=== PATIENT | male | born 2000 | race Caucasian/White ===

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

== ENCOUNTER 2020-12-09 21:14 | Emergency (ER) | payer OTHER ==
[2020-12-09 21:14] VITALS: BP 174/96
[~2020-12-09 21:14] MED LIST changes: -CITA20TA4; +CITA20TA6
[2020-12-09] MEDS ORDERED: METO1TAB7 (21:21)
--- NOTE | 2020-12-09 22:37 | REPVR ---
PROCEDURE INFORMATION: Exam: XR Left Toe(s) Exam date and time: 12/09/2020 9:46 PM Age: 20 years old Clinical indication: Pain; Toes; Left; Additional info: Dropped piece of lumbar on toe TECHNIQUE: Imaging protocol: XR Left toes. Views: Minimum 2 views. COMPARISON: No relevant prior studies available. FINDINGS: Bones/joints: There is no fracture or dislocation of the left toes. The joint spaces and alignment of the left toes are maintained. Soft tissues: Unremarkable. IMPRESSION: No fracture or dislocation of the left toes. Electronically signed by: Howard Bliss On 12/09/2020 22:36:48 PM
== END 2020-12-10 02:56 | disposition left against medical advice (07) ==
LOC: M ED 21:14
DX: Z53.21 Procedure and treatment not carried out due to patient leaving prior to being seen by health care provider (principal)

== ENCOUNTER 2022-03-11 20:51 | Emergency (ER) | payer OTHER ==
[~2022-03-11] VITALS: Ht 182.9 cm; Wt 129.9 kg
[~2022-03-11 20:51] MED LIST changes: +METO1TAB7
[2022-03-11] MEDS ORDERED: LISI20TA33 (21:00)
[2022-03-12 00:13] LABS: BASO % 0.5 % (0.0-1.0); EOS # 0.2 10^3/uL (0.0-0.5); EOS % 1.7 % (0.0-3.0); HEMATOCRIT 49.5 % (42.0-52.0); HEMOGLOBIN 16.9 g/dl (13.5-17.5); LYMPH # 2.1 10^3/uL (1.5-5.0); LYMPH % 24.2 % (24.0-44.0); MEAN CORPUSCULAR HGB CONC 34.1 g/dl (32.0-36.5); MEAN CORPUSCULAR VOLUME 90.7 fl (80.0-96.0); MONO % 11.2 % (2.0-8.0); NEUTROPHILS # 5.3 10^3/uL (1.5-8.5); NEUTROPHILS % 61.6 % (36.0-66.0); PLATELET COUNT, AUTOMATED 299 10^3/uL (150-450); RED BLOOD COUNT 5.46 10^6/uL (4.30-6.10); WHITE BLOOD COUNT 8.6 10^3/uL (4.0-10.0)
[2022-03-12 00:39] LABS: ALBUMIN 4.6 GM/DL (3.2-5.2); ALT/SGPT 50 U/L (12-78); BILIRUBIN,DIRECT 0.3 MG/DL (0.0-0.2); BILIRUBIN,TOTAL 1.1 MG/DL (0.2-1.0); BLOOD UREA NITROGEN 9 MG/DL (7-18); CALCIUM LEVEL 9.7 MG/DL (8.5-10.1); CARBON DIOXIDE LEVEL 28 MEQ/L (21-32); CHLORIDE LEVEL 104 MEQ/L (98-107); CREATININE FOR GFR 1.16 MG/DL (0.70-1.30); GLOMERULAR FILTRATION RATE > 60.0 (>60); GLUCOSE, FASTING 104 MG/DL (70-100); LIPASE 108 U/L (73-393); POTASSIUM SERUM 3.9 MEQ/L (3.5-5.1); SODIUM LEVEL 140 MEQ/L (136-145); TOTAL PROTEIN 7.9 GM/DL (6.4-8.2)
[2022-03-12] MEDS ORDERED: ONDANSETRON 4MG ORAL DISINTEGRATING TAB PO ONE (07:10)
[2022-03-12] MEDS ORDERED: ACETAMINOPHEN 500 MG TAB PO ONE (07:10)
[2022-03-12] MEDS ORDERED: ONDA4TAB6 PO (09:05)
[2022-03-12] MEDS ORDERED: MIRA3350 PO (09:05)
[2022-03-12 09:14] VITALS: BP 133/74
== END 2022-03-12 09:19 | disposition home or self-care (01) ==
LOC: M ED 20:51
DX: K59.00 Constipation, unspecified (principal); R10.32 Left lower quadrant pain; I10 Essential (primary) hypertension; Z79.899 Other long term (current) drug therapy

== ENCOUNTER 2025-01-05 02:46 | Emergency (ER) | payer OTHER, SELFPAY ==
[~2025-01-05] VITALS: Ht 180.3 cm; Wt 138.6 kg
[~2025-01-05 02:46] MED LIST changes: +LISI20TA33; +MIRA3350 PO; +ONDA-282 PO
[2025-01-05] MEDS: ONDANSETRON 4MG ORAL DISINTEGRATING TAB PO ONE (03:22)
[2025-01-05] MEDS ORDERED: ISOVUE-370 76% 100 ML VIAL As Ordered ONE (06:18)
[2025-01-05] MEDS: FAMOTIDINE 20 MG/2 ML VIAL IVP ONE (06:28)
[2025-01-05] MEDS: NS (Normal Saline) 0.9% 1,000 ML IV ONE (06:28)
[2025-01-05 06:31] LABS: BASO # 0.1 10^3/uL (0.0-0.2); BASO % 0.6 % (0.0-1.0); EOS # 0.3 10^3/uL (0.0-0.5); EOS % 3.4 % (0.0-3.0); LYMPH # 2.3 10^3/uL (1.5-5.0); LYMPH % 24.3 % (24.0-44.0); MONO # 1.0 10^3/uL (0.0-0.8); MONO % 10.8 % (2.0-8.0); NEUTROPHILS # 5.6 10^3/uL (1.5-8.5); NEUTROPHILS % 60.6 % (36.0-66.0); PLATELET COUNT, AUTOMATED 271 10^3/uL (150-450)
[2025-01-05 06:54] LABS: ALT/SGPT 53 U/L (7.0-40); AST/SGOT 32 U/L (<34); CALCIUM LEVEL 9.7 MG/DL (8.5-10.1); CARBON DIOXIDE LEVEL 28 MMOL/L (20-31); CHLORIDE LEVEL 104 MMOL/L (98-107); CREATININE FOR GFR 0.83 MG/DL (0.70-1.30); GLOMERULAR FILTRATION RATE > 90.0 (>60); POTASSIUM SERUM 4.4 MMOL/L (3.5-5.1); SODIUM LEVEL 144 MMOL/L (136-145)
[2025-01-05] MEDS ORDERED: ONDA-282 PO (07:20)
[2025-01-05 08:55] VITALS: BP 151/80; TEMP 96; O2SAT 97
== END 2025-01-05 09:49 | disposition home or self-care (01) ==
LOC: M ED 02:46
DX: A08.4 Viral intestinal infection, unspecified (principal); I10 Essential (primary) hypertension; J45.909 Unspecified asthma, uncomplicated; F41.9 Anxiety disorder, unspecified; F32.A Depression, unspecified; Z79.899 Other long term (current) drug therapy
CPT/HCPCS: 74177; 80047; 80048; 80076; 82150; 83605; 83690; 85025; 87486; 87581; 87633; 87798; 93005; 96374; 99284; J1308; J2765; Q9967